=== PATIENT | female | born 1965 | race Two or more races ===

== ENCOUNTER 2021-08-13 06:42 | Day surgery (SDC) | payer OTHER ==
[~2021-08-13 06:42] MED LIST: ATORVASTATIN CA10 MG PO; CLONAZEPAM1 MG PO; WELLBUTRIN XL300 MG PO; ZOLOFT50 MG PO
== END 2021-08-13 17:30 | disposition home or self-care (01) ==
LOC: CIR.AMB 06:42
PROVIDERS: ATTEND Specialist
DX: N60.22 Fibroadenosis of left breast (principal); N60.32 Fibrosclerosis of left breast; N60.82 Other benign mammary dysplasias of left breast; Z88.6 Allergy status to analgesic agent; M85.80 Other specified disorders of bone density and structure, unspecified site; J32.9 Chronic sinusitis, unspecified; Z20.822 Contact with and (suspected) exposure to COVID-19